=== PATIENT | female | born 1985 | race African-American/Black ===

== ENCOUNTER 2020-03-18 13:50 | Emergency (ER) | payer SELFPAY ==
[~2020-03-18] VITALS: Ht 149.9 cm; Wt 62.0 kg
--- NOTE | 2020-03-18 14:01 | NUR ---
no answer when called from [facility]
[2020-03-18 14:04] VITALS: BP 146/92
--- NOTE | 2020-03-18 14:50 | NUR ---
NO ANSWER WHEN CALLED FROM THE [facility]
--- NOTE | 2020-03-18 15:00 | NUR ---
NO ANSWER WHEN CALLED FROM THE [facility].
--- NOTE | 2020-03-18 15:12 | NUR ---
NO ANSWER WHEN CALLED FROM THE [facility].
== END 2020-03-18 15:13 | disposition left against medical advice (07) ==
LOC: ED 15:07
DX: L02.31 Cutaneous abscess of buttock (principal); Z53.21 Procedure and treatment not carried out due to patient leaving prior to being seen by health care provider

== ENCOUNTER 2020-03-21 16:13 | Emergency (ER) | payer SELFPAY ==
[~2020-03-21] VITALS: Ht 149.9 cm; Wt 60.3 kg
[2020-03-21 16:17] VITALS: BP 121/74
--- NOTE | 2020-03-21 16:24 | NUR ---
Pt refusing to change into a hospital gown. Pt reports "I don't care about the hemorrhoids. I just want papers on getting EBT."
--- NOTE | 2020-03-21 16:28 | NUR ---
PT AMBULATED OUT OF ED PRIOR TO BEING SEEN BY A PROVIDER.
== END 2020-03-21 16:57 | disposition left against medical advice (07) ==
LOC: ED 16:55
DX: Z53.21 Procedure and treatment not carried out due to patient leaving prior to being seen by health care provider (principal)

== ENCOUNTER 2020-04-09 07:28 | Emergency (ER) | payer MEDICARE, MEDICAID ==
[~2020-04-09] VITALS: Ht 180.3 cm; Wt 60.2 kg
[2020-04-09] MEDS ORDERED: ACETAMINOPHEN 325 MG TABLET ONE (07:53)
--- NOTE | 2020-04-09 07:55 | NUR ---
PT BROUGHT BACK FROM TRIAGE FOR CHIEF COMPLIANT OF "BEL[employer], AND NEEDS HIV TESTING AND ANAL CHECK."
[2020-04-09 08:00] VITALS: BP 146/94
[2020-04-09] MEDS ORDERED: ACETAMINOPHEN 325 MG TABLET PO ONE (08:00)
--- NOTE | 2020-04-09 08:34 | NUR ---
medicated as ordered. Discharge instructions reviewed.
== END 2020-04-09 08:46 | disposition home or self-care (01) ==
LOC: ED 08:19
DX: F22 Delusional disorders (principal); F20.9 Schizophrenia, unspecified; R51 Headache
CPT/HCPCS: 99284